=== PATIENT | female | born 1970 | race Caucasian/White ===

== ENCOUNTER → 2016-07-24 | Outpatient (CLI) | payer BC ==
[2016-07-24 12:06] LABS: CHLORIDE,CL 104 mmol/L (98-110); SODIUM,NA 137 mmol/L (136-146)
--- NOTE | 2016-07-24 12:37 | CR ---
EXAMINATION: Abdomen HISTORY: Pain COMPARISON: 01/09/2013 TECHNIQUE: AP and upright views FINDINGS: There is no free air under the diaphragm. There is a nonobstructive bowel gas pattern. No abnormal calcifications project over the kidneys. The visualized osseous structures appear normal. T he SI joints are symmetric. IMPRESSION: Grossly unremarkable abdominal films.
== END ==
LOC: MW.CHFP 11:13
PROVIDERS: ATTEND Nurse Practitioner Family
DX: R10.9 Unspecified abdominal pain (principal); E03.9 Hypothyroidism, unspecified
CPT/HCPCS: 36415; 74020; 74020-26; 80053; 81001; 84443; 85025